=== PATIENT | male | born 1960 | race Caucasian/White ===

== ENCOUNTER 2020-04-02 08:02 | Inpatient (IN) | payer OTHER ==
[~2020-04-02] VITALS: Ht 182.9 cm; Wt 94.6 kg
[2020-04-04] MEDS ORDERED: METO25TA35 PO (07:33)
[2020-04-04] MEDS ORDERED: ASPI81TA45 PO (07:33)
[2020-04-04] MEDS ORDERED: MULT-658 PO (07:33)
[2020-04-04] MEDS ORDERED: ATOR-2 PO (07:33)
[2020-04-04] MEDS ORDERED: EZET10TA70 PO (07:33)
[2020-04-04 07:34] VITALS: BP 168/101
[2020-04-04] MEDS ORDERED: CHLORHEXIDINE 15 ML UDC ONE (07:45)
[2020-04-04 07:50] VITALS: BP 150/85
[2020-04-04] MEDS ORDERED: OXYcodone 5 MG/5 ML ORAL.SOL UDC PO PRN (08:00)
[2020-04-04] MEDS ORDERED: HYDROmorphone 1 MG/ML, 1ML INJ IVPush PRN (08:00)
[2020-04-04] MEDS ORDERED: ONDANSETRON 2MG/ML, 2ML IVPush PRN (08:00)
[2020-04-04] MEDS ORDERED: LABETALOL 5MG/ML, 20ML IV PRN (08:00)
[2020-04-04] MEDS ORDERED: LACTATED RINGERS 1,000 ML IV SCH (08:00)
[2020-04-04] MEDS ORDERED: FENTANYL PF 100 MCG/2ML IV PRN (08:00)
[2020-04-04] MEDS ORDERED: EPHEDRINE 50 MG/ML, 1ML IVPush PRN (08:00)
[2020-04-04] MEDS ORDERED: CHLORHEXIDINE 15 ML UDC MM ONE (08:00)
[2020-04-04] MEDS ORDERED: hydrALAzine 20 MG/ML, 1ML IV PRN (08:00)
[2020-04-04] MEDS ORDERED: ACETAMINOPHEN 500 MG TABLET PO ONE (08:00)
[2020-04-04] MEDS ORDERED: PROMETHAZINE 25 MG/ML, 1ML IVPush PRN (08:00)
[2020-04-04 08:06] LABS: BASOPHILS % (AUTO) 0 % (0-1); EOSINOPHILS % (AUTO) 1 % (1-7); LYMPHOCYTES % (AUTO) 18 % (22-44); MEAN CORPUSCULAR HEMOGLOBIN 33.2 pg (27.5-34.5); MEAN CORPUSCULAR HGB CONC 35.3 g/dL (33.2-36.2); MEAN PLATELET VOLUME 7.5 fL (7.4-10.4); MONOCYTES % (AUTO) 4 % (2-9); NEUTROPHILS % (AUTO) 77 % (42-75); PLATELET COUNT 180 x10^3/uL (130-400); RED CELL DISTRIBUTION WIDTH 13.1 % (9.4-14.8)
[2020-04-04] MEDS ORDERED: THROMBIN 5,000 UNIT VIAL TP ONE (08:08)
[2020-04-04] MEDS ORDERED: PROTAMINE SULFATE 10 MG/ML, 25ML ONE (08:08)
[2020-04-04] MEDS ORDERED: HEPARIN 1,000 UNITS/ML, 10ML ONE ×2 (08:08→08:09)
[2020-04-04 08:14] LABS: MD NO
[2020-04-04 08:16] LABS: ALANINE AMINOTRANSFERASE 46 U/L (12-78); ANION GAP 7 mmol/L (5-15); CHLORIDE 109 mmol/L (98-107)
[2020-04-04 08:18] LABS: ALKALINE PHOSPHATASE 96 U/L (45-117); BILIRUBIN,TOTAL 0.6 mg/dL (0.2-1.0); TOTAL PROTEIN 7.4 g/dL (6.4-8.2)
[2020-04-04] MEDS ORDERED: EPINEPHRINE 1 MG/ML, 1ML ONE (08:22)
[2020-04-04] MEDS ORDERED: PROTAMINE SULFATE 10 MG/ML, 5ML ONE (08:22)
[2020-04-04] MEDS ORDERED: BUPIVACAINE/PF 0.5% ONE (08:22)
[2020-04-04] MEDS ORDERED: FENTANYL PF 250 MCG/5ML ONE (09:03)
[2020-04-04] MEDS ORDERED: PHENYLEPHRINE 10 MG/ML ONE (09:03)
[2020-04-04] MEDS ORDERED: DEXAMETHASONE 4 MG/ML, 5ML ONE (09:09)
[2020-04-04] MEDS ORDERED: SUCCINYLCHOLINE 20 MG/ML, 10ML ONE (09:09)
[2020-04-04] MEDS ORDERED: CEFAZOLIN 1,000 MG ONE ×2 (09:09)
[2020-04-04] MEDS ORDERED: PROPOFOL 10 MG/ML, 20ML ONE (09:09)
[2020-04-04] MEDS ORDERED: ROCURONIUM 10MG/ML,5ML ONE (09:10)
[2020-04-04] MEDS ORDERED: LIDOCAINE-MPF 2% ,5ML ONE (09:10)
== END 2020-04-04 10:50 | disposition home or self-care (01) | DRG 301 ==
LOC: ORIP 04-04 06:59 → EDSTATUS 04-04 09:00
PROVIDERS: ADMIT Surgery; ATTEND Surgery
DX: I71.4 Abdominal aortic aneurysm, without rupture (principal); Z53.8 Procedure and treatment not carried out for other reasons; B37.2 Candidiasis of skin and nail
CPT/HCPCS: 36415; J3490; S0020; 71045; 80053; 85025; 86850; 86900; 93005; J0171; J0690; J1100; J1644; J2704; J2720; J3010; J0330; J2370; J7120; U0003

== ENCOUNTER → 2020-05-16 | Outpatient (CLI) | payer OTHER ==
[~2020-05-16] MED LIST: ASPI81TA45 PO; ATOR-2 PO; EZET10TA70 PO; METO25TA35 PO; MULT-658 PO
[2020-05-16 14:57] LABS: BASOPHILS % (AUTO) 0 % (0-1); EOSINOPHILS % (AUTO) 1 % (1-7); LYMPHOCYTES % (AUTO) 28 % (22-44); MEAN CORPUSCULAR HEMOGLOBIN 33.4 pg (27.5-34.5); MEAN PLATELET VOLUME 7.7 fL (7.4-10.4); MONOCYTES % (AUTO) 6 % (2-9); NEUTROPHILS % (AUTO) 65 % (42-75); PLATELET COUNT 176 x10^3/uL (130-400); RED BLOOD COUNT 4.72 x10^6/uL (4.38-5.82); RED CELL DISTRIBUTION WIDTH 13.2 % (9.4-14.8)
[2020-05-16 15:04] LABS: MD NO
[2020-05-16 15:09] LABS: ALANINE AMINOTRANSFERASE 39 U/L (12-78); ALBUMIN 4.3 g/dL (3.4-5.0); ANION GAP 4 mmol/L (5-15); CALCIUM 9.1 mg/dL (8.5-10.1); CHLORIDE 108 mmol/L (98-107); CREATININE 1.09 mg/dL (0.7-1.3)
[2020-05-16 15:15] LABS: ALKALINE PHOSPHATASE 89 U/L (45-117); BILIRUBIN,TOTAL 0.8 mg/dL (0.2-1.0); TOTAL PROTEIN 7.5 g/dL (6.4-8.2)
== END | disposition home or self-care (01) ==
LOC: STAR 13:59
PROVIDERS: ATTEND Surgery
DX: Z01.812 Encounter for preprocedural laboratory examination (principal); Z20.822 Contact with and (suspected) exposure to COVID-19; J43.9 Emphysema, unspecified; J84.10 Pulmonary fibrosis, unspecified
CPT/HCPCS: 36415; 71046; 80053; 85025; U0003